=== PATIENT | female | born 1955 | race Caucasian/White ===

== ENCOUNTER 2019-06-02 13:05 | Outpatient (CLI) | payer OTHER ==
--- NOTE | 2019-06-04 11:24 | MMO ---
Bilateral MAMMO Bilat Screen [facility]. CLINICAL HISTORY: Patient is 64 years old and is seen for screening. The patient has no family history of breast cancer. The patient has no personal history of cancer. VIEWS: The views performed were: bilateral craniocaudal with tomosynthesis and bilateral mediolateral oblique with tomosynthesis. FILMS COMPARED: The present examination has been compared to prior imaging studies performed at [facility] on 01/08/2017 and 05/21/2018. This study has been interpreted with the assistance of computer-aided detection. MAMMOGRAM FINDINGS: There are scattered fibroglandular densities. There are stable benign appearing calcifications seen in both breasts. Nodularity is stable. There are no suspicious masses, suspicious calcifications, or new areas of architectural distortion. IMPRESSION: THERE IS NO MAMMOGRAPHIC EVIDENCE OF MALIGNANCY. A ROUTINE FOLLOW-UP MAMMOGRAM IN 1 YEAR IS RECOMMENDED. THE RESULTS OF THIS EXAM WERE SENT TO THE PATIENT. ACR BI-RADS Category 2 - Benign finding MAMMOGRAPHY NOTE: 1. A negative mammogram report should not delay a biopsy if a dominant of clinically suspicious mass is present. 2. Approximately 10% to 15% of breast cancers are not detected by mammography. 3. Adenosis and dense breasts may obscure an underlying neoplasm. Reported by: ELIO ALICIA MD Electonically Signed: [id number]
== END 2019-06-02 13:06 | disposition home or self-care (01) ==
LOC: BICMAMMO 13:05
PROVIDERS: ATTEND Physician Assistant
DX: Z12.31 Encounter for screening mammogram for malignant neoplasm of breast (principal)
CPT/HCPCS: 77063; 77067

== ENCOUNTER 2020-07-12 12:39 | Outpatient (CLI) | payer BC | END 2020-07-12 12:40 | disposition home or self-care (01) | LOC: BICMAMMO 12:39 | PROVIDERS: ATTEND Physician Assistant | DX: Z12.31 Encounter for screening mammogram for malignant neoplasm of breast (principal) | CPT/HCPCS: 77063; 77067 ==

== ENCOUNTER 2020-08-25 14:36 | Outpatient (CLI) | payer BC ==
[2020-08-25 16:13] LABS: Bilirubin Neg (Negative); Blood, Urine Negative (Negative); Clarity Clear (Clear); Glucose, Urine (Dipstick) Normal (Negative); Ketone, Urine Negative (Negative); Leukocyte 25 (Negative); Nitrite Negative (Negative); Protein, Urine (Dipstick) Negative (Neg-Trace); Specific Gravity, Urine 1.015 (1.002-1.036); Urobilinogen Normal mg/dL (Less than 2)
[2020-08-25 16:33] LABS: Prothrombin Time 10.8 sec (9.5-12.1)
[2020-08-25 16:35] LABS: Anion Gap 15 mmol/L (10-20); BUN (Urea Nitrogen) 17 mg/dL (9.8-20.1); Chloride 98 mmol/L (98-107); Potassium 4.3 mmol/L (3.5-5.1); Sodium 137 mmol/L (136-145)
[2020-08-25 16:46] LABS: #Eosinphils 0.1 10x3/uL (0.0-0.5); #Monocytes 0.5 10x3/uL (0.0-1.1); #Neutrophils 5.1 10x3/uL (1.5-8.4); %Basophils 0.5 % (0.0-2.0); %Lymphocytes 25.5 % (18.0-47.0); %Monocytes 6.4 % (0.0-10.0); %Neutrophils 66.3 % (40.0-75.0); Hemoglobin 12.8 g/dL (12.0-15.5); Mean Corpuscular HGB CONC 31.4 g/dL (32.0-36.0); Mean Corpuscular Hemoglobin 27.9 pg (27.0-33.0); Mean Corpuscular Volume 89.1 fl (81.6-98.3); Platelet Count 401 10x3/uL (150-450); RBC Distribution Width 12.7 % (11.5-14.5); Red Blood Cell (RBC) Count 4.58 10x6/uL (3.90-5.03); White Blood Cell (WBC) Count 7.6 10x3/uL (3.5-10.5)
[2020-08-25 17:27] LABS: Calc. Creatinine Clearance 0 mL/min (70-130); Calcium 9.9 mg/dL (7.8-10.44); Carbon Dioxide 28 mmol/L (23-31); Glucose 89 mg/dL (80-115)
[2020-08-25 18:23] LABS: RBC/HPF 0-3 HPF (0-3)
[2020-08-25 18:25] LABS: WBC/HPF 0-3 HPF (0-3)
[2020-08-25 18:27] LABS: Transitional Epithelial 0-3 HPF (None Seen)
[2020-08-25 18:28] LABS: Bacteria/HPF 1+ HPF (None Seen)
[2020-08-26 01:16] LABS: SARS-CoV-2 PCR by NAA Not Detected (NotDetected)
[2020-08-27] MEDS ORDERED: HYDROcodone/Acetaminophen 10/325 mg Tablet PO PRN (07:05)
== END 2020-08-25 14:37 | disposition home or self-care (01) ==
LOC: LABBT 14:36
PROVIDERS: ATTEND Orthopaedic Surgery
DX: Z01.818 Encounter for other preprocedural examination (principal); M17.12 Unilateral primary osteoarthritis, left knee; Z20.822 Contact with and (suspected) exposure to COVID-19
CPT/HCPCS: 80048; 81001; 85025; 85610; 87081; 87635; U0003; U0005

== ENCOUNTER 2020-08-25 14:45 | Inpatient (IN) | payer BC ==
[2020-08-27 13:30] VITALS: BMI 31.6
[2020-08-30] MEDS ORDERED: Tranexamic Acid 1,000 MG/10 ML VIAL ONE (08:50)
[2020-08-30] MEDS ORDERED: Fentanyl 100 MCG/2 ML VIAL ONE ×2 (09:10→09:35)
[2020-08-30] MEDS ORDERED: Midazolam HCl 2 mg/2 ml Vial ONE (09:10)
[2020-08-30] MEDS ORDERED: Vancomycin 1.5 GRAM/300 ML BAG 1.5 GM in Premix Bag 1 BAG IVPB SCH (09:15)
[2020-08-30] MEDS ORDERED: Ondansetron PF 4 MG/2 ML Vial IVP PRN ×2 (09:22→10:30)
[2020-08-30] MEDS ORDERED: Promethazine HCl 25 MG/ML VIAL IM PRN ×3 (09:22→10:44)
[2020-08-30] MEDS ORDERED: HYDROcodone/Acetaminophen 10/325 mg Tablet PO PRN ×4 (09:22→10:30)
[2020-08-30] MEDS ORDERED: diphenhydrAMINE 25 MG CAP PO PRN (09:22)
[2020-08-30] MEDS ORDERED: Zolpidem Tartrate 5 MG TAB PO PRN ×2 (09:22→10:30)
[2020-08-30] MEDS ORDERED: Lidocaine 1% PF 5 ML VIAL ONE (09:50)
[2020-08-30] MEDS ORDERED: Ketorolac Tromethamine 30 MG/ML VIAL ONE (09:50)
[2020-08-30] MEDS ORDERED: Bupivacaine HCl 0.5%/Epinephrine 1:200,000/PF 30 ml Vial ONE (09:50)
[2020-08-30] MEDS ORDERED: PROPOFOL 200 MG/20 ML VIAL ONE (09:50)
[2020-08-30] MEDS ORDERED: Metoclopramide HCl 10 MG/2 ML VIAL ONE (09:50)
[2020-08-30] MEDS ORDERED: ePHEDrine Sulfate 50 MG/10 ML VIAL ONE (09:50)
[2020-08-30] MEDS ORDERED: diphenhydrAMINE 50 MG/ML VIAL ONE (09:50)
[2020-08-30] MEDS ORDERED: Ondansetron PF 4 MG/2 ML Vial ONE (09:50)
[2020-08-30] MEDS ORDERED: Dexamethasone 20 MG/5 ML VIAL ONE (09:50)
[2020-08-30] MEDS ORDERED: Ropivacaine 2% HCl/PF (20 MG/10 ML VIAL) ONE (09:50)
[2020-08-30] MEDS ORDERED: Fentanyl 100 MCG/2 ML VIAL IV PRN (10:18)
[2020-08-30] MEDS ORDERED: Ropivacaine HCl/PF 250 ML in Premix Bag 1 BAG NERVE BLCK SCH (10:30)
[2020-08-30] MEDS ORDERED: traMADol HCl 50 MG TAB PO PRN (10:30)
[2020-08-30] MEDS ORDERED: Promethazine HCl 25 MG/ML VIAL SLOW IVP PRN (10:44)
[2020-08-30] MEDS ORDERED: Meperidine HCl/PF 25 MG/ML VIAL SLOW IVP PRN (10:44)
[2020-08-30] MEDS ORDERED: HYDROmorphone 2 MG/ML VIAL SLOW IVP PRN (10:44)
[2020-08-30] MEDS ORDERED: Ketorolac Tromethamine 30 MG/ML VIAL IVP SCH ×2 (12:00→14:00)
[2020-08-30] MEDS: Sodium Chloride 0.9% 1,000 ML IV SCH (14:10)
[2020-08-30] MEDS: Ketorolac Tromethamine 30 MG/ML VIAL IVP SCH (17:03)
[2020-08-30] MEDS: CEFAZOLIN 2 GM in Premix Bag 1 BAG IVPB SCH (17:04)
[2020-08-30] MEDS ORDERED: Aspirin 81 mg Enteric Coated Tablet PO SCH (21:00)
[2020-08-30] MEDS: Ferrous Gluconate 324 MG TAB PO SCH (21:48)
[2020-08-30] MEDS: Zinc Sulfate 220 MG CAP PO SCH (21:48)
[2020-08-30] MEDS: Senokot S 8.6-50 MG TAB PO SCH (21:48)
[2020-08-30] MEDS: Aspirin 81 mg Enteric Coated Tablet PO SCH (21:48)
[2020-08-30] MEDS: Atorvastatin Calcium 10 MG TAB PO SCH (21:49)
[2020-08-30] MEDS: Ascorbic Acid 500 mg Chewable Tablet PO SCH (21:51)
[2020-08-30] MEDS: Atenolol 25 MG TAB PO SCH (21:54)
[2020-08-31] MEDS: Sodium Chloride 0.9% 1,000 ML IV SCH ×3 (00:24→18:36)
[2020-08-31] MEDS: Ketorolac Tromethamine 30 MG/ML VIAL IVP SCH ×4 (00:25→17:38)
[2020-08-31] MEDS: CEFAZOLIN 2 GM in Premix Bag 1 BAG IVPB SCH (00:25)
[2020-08-31] MEDS: traMADol HCl 50 MG TAB PO PRN ×3 (04:38→19:31)
[2020-08-31 05:59] LABS: Hemoglobin 9.8 g/dL (12.0-16.0); Mean Corpuscular HGB CONC 33.3 g/dL (32.0-36.0); Mean Corpuscular Hemoglobin 29.6 pg (27.0-31.0); Mean Corpuscular Volume 88.9 fL (78.0-98.0); Mean Platelet Volume 6.6 fL (7.4-10.4); Platelet Count 264 thou/uL (130-400); RBC Distribution Width 11.7 % (11.5-14.5); Red Blood Cell (RBC) Count 3.31 mill/uL (4.20-5.40)
[2020-08-31] MEDS: Lisinopril/Hydrochlorothiazide 20 mg/12.5 mg Tablet PO SCH (07:46)
[2020-08-31] MEDS: Ferrous Gluconate 324 MG TAB PO SCH ×2 (07:46→20:18)
[2020-08-31] MEDS: Multivitamin W/ Minerals 1 TAB PO SCH (07:46)
[2020-08-31] MEDS: Aspirin 81 mg Enteric Coated Tablet PO SCH ×2 (07:46→20:19)
[2020-08-31] MEDS: Cholecalciferol 1,000 UNITS (25 MCG) TAB PO SCH (07:47)
[2020-08-31] MEDS: Senokot S 8.6-50 MG TAB PO SCH ×2 (07:47→20:19)
[2020-08-31] MEDS: Ferrous Sulfate 325 MG TAB PO SCH (07:47)
[2020-08-31] MEDS: Ascorbic Acid 500 mg Chewable Tablet PO SCH (20:18)
[2020-08-31] MEDS: Zinc Sulfate 220 MG CAP PO SCH (20:18)
[2020-08-31] MEDS: Atenolol 25 MG TAB PO SCH (20:19)
[2020-08-31] MEDS: Atorvastatin Calcium 10 MG TAB PO SCH (20:19)
[2020-09-01] MEDS: Ketorolac Tromethamine 30 MG/ML VIAL IVP SCH ×3 (00:01→11:03)
[2020-09-01] MEDS: Sodium Chloride 0.9% 1,000 ML IV SCH ×2 (01:02→09:40)
[2020-09-01] MEDS ORDERED: Sodium Chloride 0.9% 500 ML IV SCH (02:30)
[2020-09-01 02:31] LABS: #Basophils 0.1 thou/uL (0.0-0.2); #Eosinphils 0.6 thou/uL (0.0-0.7); #Lymphocytes 4.5 thou/uL (1.20-3.40); #Monocytes 1.4 thou/uL (0.11-0.59); #Neutrophils 8.9 thou/uL (1.40-6.50); %Basophils 0.8 % (0.0-1.0); %Eosinophils 3.8 % (0.0-10.0); %Monocytes 8.9 % (0.0-10.0); %Neutrophils 57.5 % (42.0-75.0); Hemoglobin 10.2 g/dL (12.0-16.0); Mean Corpuscular HGB CONC 32.6 g/dL (32.0-36.0); Mean Corpuscular Hemoglobin 28.9 pg (27.0-31.0); Mean Corpuscular Volume 88.8 fL (78.0-98.0); Mean Platelet Volume 6.5 fL (7.4-10.4); Platelet Count 359 thou/uL (130-400); RBC Distribution Width 11.8 % (11.5-14.5); Red Blood Cell (RBC) Count 3.54 mill/uL (4.20-5.40); White Blood Cell (WBC) Count 15.4 thou/uL (4.8-10.8)
[2020-09-01 02:51] LABS: Anion Gap 15 mmol/L (10-20); BUN (Urea Nitrogen) 7 mg/dL (9.8-20.1); Calc. Creatinine Clearance 103 mL/min (70-130); Calcium 8.7 mg/dL (7.8-10.44); Carbon Dioxide 24 mmol/L (23-31); Chloride 101 mmol/L (98-107); Glucose 118 mg/dL (80-115); Potassium 3.9 mmol/L (3.5-5.1); Sodium 136 mmol/L (136-145)
[2020-09-01 02:56] LABS: Troponin I Less than 0.010 ng/mL (< 0.028)
[2020-09-01] MEDS: Acetaminophen 325 MG TAB PO PRN ×2 (03:55→08:06)
[2020-09-01] MEDS: traMADol HCl 50 MG TAB PO PRN ×2 (06:10→13:04)
[2020-09-01] MEDS: Lisinopril/Hydrochlorothiazide 20 mg/12.5 mg Tablet PO SCH (08:07)
[2020-09-01] MEDS: Senokot S 8.6-50 MG TAB PO SCH (08:08)
[2020-09-01] MEDS: Aspirin 81 mg Enteric Coated Tablet PO SCH (08:08)
[2020-09-01] MEDS: Ferrous Gluconate 324 MG TAB PO SCH (08:08)
[2020-09-01] MEDS: Multivitamin W/ Minerals 1 TAB PO SCH (08:08)
[2020-09-01] MEDS: Ferrous Sulfate 325 MG TAB PO SCH (08:08)
[2020-09-01] MEDS: Cholecalciferol 1,000 UNITS (25 MCG) TAB PO SCH (08:08)
[2020-09-01 12:01] VITALS: BP 129/69; TEMP 98.7
== END 2020-09-01 14:00 | disposition home or self-care (01) | DRG 470 ==
LOC: SJJU 08-30 08:26 → EDSTATUS 08-30 14:45
PROVIDERS: ADMIT Orthopaedic Surgery; ATTEND Orthopaedic Surgery
PROC: 0SRD0J9 Replacement of Left Knee Joint with Synthetic Substitute, Cemented, Open Approach (ICD-10-PCS; principal; 2020-08-31)
PROC: 8E0YXBZ Computer Assisted Procedure of Lower Extremity (ICD-10-PCS; 2020-08-31)
DX: M17.0 Bilateral primary osteoarthritis of knee (principal); Z20.822 Contact with and (suspected) exposure to COVID-19; E78.00 Pure hypercholesterolemia, unspecified; I10 Essential (primary) hypertension; R00.1 Bradycardia, unspecified; Z90.710 Acquired absence of both cervix and uterus; Z83.3 Family history of diabetes mellitus; Z80.1 Family history of malignant neoplasm of trachea, bronchus and lung; Z79.899 Other long term (current) drug therapy; Z79.82 Long term (current) use of aspirin
CPT/HCPCS: 36415; 36416; 80048; 84484; 85027; 88305; 93005; 93010; C1713; C1776; J0690; J1100; J1200; J1885; J2250; J2405; J2704; J2765; J2795; J3010

== ENCOUNTER 2021-09-01 14:00 | Outpatient (CLI) | payer BC | END 2021-09-01 14:01 | disposition home or self-care (01) | LOC: BICMAMMO 14:00 | PROVIDERS: ATTEND Physician Assistant | DX: Z12.31 Encounter for screening mammogram for malignant neoplasm of breast (principal) | CPT/HCPCS: 77063; 77067 ==

== ENCOUNTER 2022-10-03 13:21 | Outpatient (CLI) | payer BC, MEDICARE | END 2022-10-03 13:22 | disposition home or self-care (01) | LOC: BICMAMMO 13:21 | PROVIDERS: ATTEND Nurse Practitioner Family | DX: Z12.31 Encounter for screening mammogram for malignant neoplasm of breast (principal) | CPT/HCPCS: 77063; 77067 ==